=== PATIENT | female | born 1995 | race Caucasian/White ===

== ENCOUNTER 2016-12-29 18:28 | Emergency (ER) | payer BC, OTHER ==
--- NOTE | 2016-12-29 19:00 | UC ---
Respiratory Complaint HPI - HPI Summary HPI Summary: 21 yo female with about a week hx of sinus pressure and pain and post nasal drip no f/c no n/v/d no cp or sob - History of Current Complaint Chief Complaint: UCRespiratory Stated Complaint: SINUS,COUGH,TIRED Time Seen by Provider: 12/29/16 18:41 Hx Obtained From: Patient Hx Last Menstrual Period: 12/10/16 Onset/Duration: Gradual Onset, Lasting Days Severity Initially: Moderate Severity Currently: Moderate Pain Intensity: 4 Pain Scale Used: 0-10 Numeric Character: Cough: Nonproductive Aggravating Factors: Nothing Alleviating Factors: Nothing Associated Signs And Symptoms: Positive: Nasal Congestion, Sinus Discomfort - Allergies/Home Medications Allergies/Adverse Reactions: Allergies Allergy/AdvReac Type Severity Reaction Status Date / Time No Known Allergies Allergy Verified 12/29/16 18:42 Home Medications: Home Medications Norgestimate-Ethinyl Estradiol [Tri-Sprintec 0.18/0.215/0.25 mg-35 Mcg] 1 tab PO DAILY 12/29/16 [History Confirmed 12/29/16] Pseudoephedrine-Guaifenesin [Mucinex D 60-600 mg] 2 tab PO PRN 12/29/16 [History ] PMH/Surg Hx/FS Hx/Imm Hx Previously Healthy: Yes - Surgical History Surgical History: Yes Surgery Procedure, Year, and Place: Tonsilectomy - Family History Known Family History: Positive: Cardiac Disease, Hypertension, Diabetes - Social History Alcohol Use: Occasionally Substance Use Type: None Smoking Status (MU): Never Smoked Tobacco - Immunization History Most Recent Influenza Vaccination: 10/10 Review of Systems Constitutional: Negative Skin: Negative Eyes: Negative ENT: Nasal Discharge Respiratory: Cough Cardiovascular: Negative Gastrointestinal: Negative Genitourinary: Negative Motor: Negative Neurovascular: Negative Musculoskeletal: Negative Neurological: Negative Psychological: Negative All Other Systems Reviewed And Are Negative: Yes Physical Exam Triage Information Reviewed: Yes Appearance: Well-Appearing, No Pain Distress, Well-Nourished Vital Signs: Initial Vital Signs Temp 99.3 F 12/29/16 18:34 Pulse 98 12/29/16 18:34 Resp 16 12/29/16 18:34 BP 143/78 12/29/16 18:34 Pulse Ox 100 12/29/16 18:34 Vital Signs Reviewed: Yes Eyes: Positive: Conjunctiva Clear ENT: Positive: Hearing grossly normal, Pharynx normal, Nasal congestion, Nasal drainage, TMs normal, Other: - bilat max sinus tenderness. Negative: Tonsillar swelling, Tonsillar exudate, Trismus, Muffled/hoarse voice Dental: Negative: Gross Decay/Caries @, Dental Fracture @ Neck: Positive: Supple, Nontender, No Lymphadenopathy Respiratory: Positive: Lungs clear, Normal breath sounds, No respiratory distress Cardiovascular: Positive: RRR, No Murmur Musculoskeletal: Positive: ROM Intact, No Edema Neurological Exam: Normal Neurological: Positive: Alert, Muscle Tone Normal Psychological Exam: Normal Skin Exam: Normal UC Diagnostic Evaluation - Laboratory O2 Sat by Pulse Oximetry: 100 - normal/not hypoxic Respiratory Course/Dx - Differential Dx/Diagnosis Provider Diagnoses: acute sinusitis Discharge - Discharge Plan Condition: Stable Disposition: HOME Prescriptions: Amoxicillin (*) 875 mg PO BID #20 tab Patient Education Materials: Sinusitis (ED) Additional Instructions: recheck next week if not better
[2016-12-29 19:29] VITALS: BP 147/89
== END 2016-12-29 19:20 | disposition home or self-care (01) ==
LOC: UCCORT 18:28
DX: J01.90 Acute sinusitis, unspecified (principal); R03.0 Elevated blood-pressure reading, without diagnosis of hypertension
CPT/HCPCS: 99202; G0463